=== PATIENT | female | born 1925 | race Caucasian/White ===

== ENCOUNTER 2016-10-05 14:43 | Observation (INO) | payer MEDICARE, BC ==
[~2016-10-05 14:43] MED LIST: ACETAMINOPHEN650 M1 PO; AMBIEN10 MG PO; ARTIFICIAL TEAR15 M OP; ATIVAN0.5 MG PO; BENADRYL25 MG PO; EFFEXOR75 MG PO; EXFORGE 5-160 M1 TAB PO; FLONASE16 G2 NS; METRONIDAZOLE500 MG PO; MULTI VITAMIN1 EAC1 PO; PRILOSEC OTC20 MG PO; TRIAMCINOLONE A15 GM TP; VIBRAMYCIN100 MG PO; VYTORIN 10/10 T1 TAB PO; [UNRECOGNIZED DRUG - OTHER] PO
[2016-10-05] MEDS ORDERED: PRESERVISION A1 EAC5 PO ×2 (14:48→15:09)
[2016-10-05] MEDS ORDERED: NORVASC5 M2 PO (14:49)
[2016-10-05] MEDS ORDERED: SYSTANE ULTRA 010 M1 OP (14:49)
[2016-10-05] MEDS ORDERED: NEXIUM20 M1 PO (14:49)
[2016-10-05] MEDS ORDERED: ATIVAN0.5 M1 PO ×2 (14:49→15:07)
[2016-10-05] MEDS ORDERED: COZAAR50 M1 PO (14:49)
[2016-10-05] MEDS ORDERED: ZOCOR10 M1 PO (14:50)
[2016-10-05] MEDS ORDERED: REFRESH OPTIVE15 ML OP (14:51)
[2016-10-05] MEDS ORDERED: VENLAFAXINE HCL75 M3 PO (14:51)
[2016-10-05] MEDS ORDERED: AMBIEN10 M1 PO (14:51)
[2016-10-05] MEDS ORDERED: SYSTANE GEL EYE10 M1 OP (15:07)
[2016-10-05] MEDS ORDERED: [UNRECOGNIZED DRUG - REMARK] PO (15:08)
[2016-10-05] MEDS ORDERED: ARTIFICIAL TEAR1512 EACH EYE (15:08)
[2016-10-05] MEDS ORDERED: CRANBERRY TABL1 EAC1 PO (15:09)
[2016-10-05 16:01] LABS: BASO % 0.4 % (0-2); EOS % 2.4 % (0-7); EOSINOPHIL ABSOLUTE COUNT 0.2 tho/cmm (0.0-0.7); HCT-HEMATOCRIT 35.4 % (34.0-49.0); HGB-HEMOGLOBIN 11.3 gm/dl (12.0-15.5); IMMATURE GRANULOCYTES ABSOLUTE 0.01 tho/cmm (0-0.03); IMMATURE GRANULOCYTES PERCENT 0.1 % (0-0.3); LYMPH % 23.4 % (20-45); LYMPH ABSOLUTE COUNT 2.4 tho/cmm (0.8-4.5); MCH (MEAN CORPUSCULAR HGB) 30.4 pg (28.0-32.0); MCHC MEAN CORPUSCULAR HGB CONC 31.9 % (32.0-36.0); MCV (MEAN CELL VOLUME) 95.2 fl (82.0-96.0); MEAN PLATELET VOLUME 10.1 cmc (9.4-12.4); MONO % 6.9 % (0-12); MONOCYTE ABSOLUTE COUNT 0.7 tho/cmm (0.0-1.2); NEUTROPHIL ABSOLUTE COUNT 6.7 tho/cmm (1.6-8.0); NEUTROPHIL-AUTOMATED 6.7 tho/cmm (1.6-8.0); NEUTROPHILS % 66.8 % (40-80); PLATELET COUNT 243 tho/cmm (150-450); RED BLOOD COUNT 3.72 mil/cmm (4.00-5.20); RED CELL DISTRIBUTION WIDTH 12.6 % (12.4-16.4); WHITE BLOOD COUNT 10.1 tho/cmm (4.0-10.0)
[2016-10-05 16:07] LABS: PROTHROMBIN TIME 11.3 SECONDS (9.0-13.6)
[2016-10-05 16:20] LABS: ALBUMIN 3.7 g/dl (3.5-5.0); ALKALINE PHOSPHATASE 91 U/L (33-138); ALT/SGPT 16 U/L (12-78); ANION GAP 12 mmol/L (0-20); AST/SGOT 17 U/L (10-40); BILIRUBIN,TOTAL 0.2 mg/dl (0-1.5); BLOOD UREA NITROGEN 29 mg/dl (6-24); CALCIUM 8.9 mg/dl (8.5-10.5); CARBON DIOXIDE-VENOUS 27 mmol/L (22-32); CHLORIDE 105 mmol/l (96-110); CREATININE 1.21 mg/dl (0.50-1.10); GLUCOSE 113 mg/dL (70-110); POTASSIUM 4.2 mmol/L (3.7-5.1); SODIUM 140 mmol/L (135-145); eGFR VALUE FOR BLACK 46 mL/Min
[2016-10-06 04:44] LABS: URINE BILIRUBIN NEGATIVE (NEG); URINE BLOOD NEGATIVE (NEG); URINE GLUCOSE (UA) NEGATIVE (NEG); URINE KETONE NEGATIVE (NEG); URINE LEUKOCYTE ESTERASE POSITIVE (NEG); URINE NITRITE NEGATIVE (NEG); URINE PROTEIN NEGATIVE (NEG); URINE SPECIFIC GRAVITY 1.005 (1.003-1.030)
[2016-10-06 04:45] LABS: URINE APPEARANCE HAZY; URINE COLOR YELLOW
[2016-10-06 04:51] LABS: URINE BACTERIA 1+; URINE EPITHELIAL CELLS RARE /[HPF] (0-10); URINE RBC 0 /[HPF] (0-5); URINE WBC 0-2 /[HPF] (0-5)
[2016-10-06 08:05] LABS: ANION GAP 12 mmol/L (0-20); BLOOD UREA NITROGEN 25 mg/dl (6-24); CALCIUM 8.4 mg/dl (8.5-10.5); CARBON DIOXIDE-VENOUS 26 mmol/L (22-32); CHLORIDE 112 mmol/l (96-110); CHOLESTEROL 153 mg/dl (120-200); CREATININE 1.02 mg/dl (0.50-1.10); GLUCOSE 100 mg/dL (70-110); HDL CHOLESTEROL 50 mg/dl (40-60); LDL CHOLESTEROL 79 mg/dl (0-99); POTASSIUM 4.6 mmol/L (3.7-5.1); SODIUM 145 mmol/L (135-145); TRIGLYCERIDES 124 mg/dl (<149); VLDL 25 mg/dl (0-30); eGFR VALUE FOR BLACK 56 mL/Min
[2016-10-07] MEDS ORDERED: ASPIRIN325 M3 PO (11:56)
== END 2016-10-07 13:19 ==
LOC: EDMED 14:43 → EMR2 17:59 → 5EB 19:51
PROVIDERS: Emergency Medicine; Nurse Practitioner; ADMIT Hospitalist
DX: R29.898 Other symptoms and signs involving the musculoskeletal system (principal); I12.9 Hypertensive chronic kidney disease with stage 1 through stage 4 chronic kidney disease, or unspecified chronic kidney disease; N18.4 Chronic kidney disease, stage 4 (severe); K21.9 Gastro-esophageal reflux disease without esophagitis; I65.23 Occlusion and stenosis of bilateral carotid arteries; I35.0 Nonrheumatic aortic (valve) stenosis; I27.2 Other secondary pulmonary hypertension; D51.0 Vitamin B12 deficiency anemia due to intrinsic factor deficiency; E78.5 Hyperlipidemia, unspecified; G47.33 Obstructive sleep apnea (adult) (pediatric); M81.0 Age-related osteoporosis without current pathological fracture; M19.042 Primary osteoarthritis, left hand; M19.041 Primary osteoarthritis, right hand; Z77.22 Contact with and (suspected) exposure to environmental tobacco smoke (acute) (chronic); Z79.899 Other long term (current) drug therapy; Z88.1 Allergy status to other antibiotic agents; Z87.440 Personal history of urinary (tract) infections; Z85.828 Personal history of other malignant neoplasm of skin; Z90.710 Acquired absence of both cervix and uterus; Z96.653 Presence of artificial knee joint, bilateral; Z98.41 Cataract extraction status, right eye; Z98.42 Cataract extraction status, left eye; Z98.890 Other specified postprocedural states
CPT/HCPCS: C8929; G0378; G8978-GP-CJ; G8979-GP-CI; G8980-GP-CJ; G8987-GO-CH; G8988-GO-CH; G8989-GO-CI; J1650; J7030